=== PATIENT | male | born 1985 | race Caucasian/White ===

== ENCOUNTER 2024-06-23 11:10 | Emergency (ER) | payer SELFPAY ==
[~2024-06-23] VITALS: Ht 180.3 cm; Wt 77.1 kg
[2024-06-23 11:30] VITALS: TEMP 98.3
[2024-06-23] MEDS: IV NS 0.9% 1,000 ML BAG IV ONE (11:55)
[2024-06-23] MEDS ORDERED: ONDANSETRON HCL/PF 4 MG/2 ML VIAL ONE (12:00)
[2024-06-23] MEDS: ONDANSETRON HCL/PF 4 MG/2 ML VIAL IV ONE (12:04)
[2024-06-23 12:11] LABS: ALCOHOL, BLOOD < 3 mg/dL (0-10)
[2024-06-23 12:12] LABS: BASOPHILS # (AUTO) 0.1 K/uL (0.0-0.2); BASOPHILS % (AUTO) 1.9 % (0.0-2.0); EOSINOPHILS % (AUTO) 0.6 % (0.0-6.0); HEMATOCRIT 47 % (39-51); HEMOGLOBIN 16.5 g/dL (13.5-17.5); LYMPHOCYTES # (AUTO) 0.7 K/uL (0.8-4.8); LYMPHOCYTES % (AUTO) 11.1 % (20.0-44.0); MEAN CORPUSCULAR HEMOGLOBIN 32 PG (26.0-33.0); MEAN CORPUSCULAR HGB CONC 35 g/dl (31.0-36.0); MEAN CORPUSCULAR VOLUME 92 fL (80-96); MONOCYTES # (AUTO) 0.8 K/uL (0.1-1.30); MONOCYTES % (AUTO) 13.3 % (2.0-12.0); NEUTROPHILS # (AUTO) 4.5 K/uL (1.8-8.9); NEUTROPHILS % (AUTO) 73.1 % (43.0-81.0); PLATELET COUNT (AUTO) 153 K/uL (150-450); RED BLOOD CELL COUNT(AUTO) 5.12 MIL/uL (4.5-6.0); RED CELL DISTRIBUTION WIDTH 12.6 % (11.5-15.0); WHITE BLOOD COUNT (AUTO) 6.1 K/uL (4.3-11.0)
[2024-06-23 12:16] LABS: CALCIUM, SERUM 8.7 mg/dL (8.5-10.1); CARBON DIOXIDE 31 mmol/L (21-32); CHLORIDE 108 mmol/L (98-107); GLUCOSE 100 mg/dL (74-106); POTASSIUM 3.9 mmol/L (3.5-5.1); SODIUM SERUM 144 mmol/L (136-145); UREA NITROGEN, BLOOD 7 mg/dL (7-18)
[2024-06-23] MEDS ORDERED: KETOROLAC TROMETHAMINE 15 MG/ML VIAL ONE (14:00)
[2024-06-23] MEDS: KETOROLAC TROMETHAMINE 15 MG/ML VIAL IV ONE (14:09)
[2024-06-23] MEDS ORDERED: IBUP-1955 PO (14:44)
[2024-06-23] MEDS ORDERED: ONDA4TAB5 PO (14:44)
[2024-06-23 15:24] VITALS: BP 110/76; O2SAT 99
== END 2024-06-23 15:40 | disposition home or self-care (01) ==
LOC: ER 12:46
DX: J06.9 Acute upper respiratory infection, unspecified (principal); R55 Syncope and collapse; R11.2 Nausea with vomiting, unspecified; M54.2 Cervicalgia; R51.9 Headache, unspecified; Z20.822 Contact with and (suspected) exposure to COVID-19
CPT/HCPCS: 99284; 96374; 96361; 96375; 93005; 87804 ×2; 85025; 80048; 36415; 84443; 84484; 82962; 87426; 80320; 80307; J2405; J7030; J1885; G0480